=== PATIENT | male | born 1985 | race Caucasian/White ===

== ENCOUNTER 2017-08-30 07:44 | Inpatient (IN) ==
[2017-08-30] MEDS ORDERED: Isovue-370 500 ML INFUS..BTL IV ONE (07:54)
[2017-08-30] MEDS ORDERED: Lactulose Oral Soln 20 GM/30 ML UDC PO ONE (07:54)
[2017-08-30] MEDS ORDERED: Naloxone 0.4 MG/ML INJ IVP ONE (07:54)
[2017-08-30] MEDS ORDERED: 0.9 % Sodium Chloride 1,000 ML IVC ONE (07:54)
[2017-08-30] MEDS ORDERED: 0.9 % Sodium Chloride 1,000 ML ONE (07:55)
[2017-08-30] MEDS ORDERED: Dexamethasone 4 MG/ML VIAL IVP ONE (08:08)
[2017-08-30] MEDS ORDERED: Hydrocortisone Sodium Succ 100 MG/2 ML VIAL IVP ONE (08:09)
--- NOTE | 2017-08-30 08:20 | Emergency Department Note ---
Disposition Clinical Impression: Esophageal varices with bleeding Qualifiers: Esophageal varices type: unspecified type Qualified Code(s): I85.01 - Esophageal varices with bleeding Disposition: Admitted As Inpatient Condition: Critical Time of Disposition: 10:18 General Adult HPI - General Chief complaint: ED Weakness Stated complaint: Vomiting Blood Time Seen by Provider: 08/30/17 07:54 Source: EMS Limitations: altered mental status Nursing Notes Reviewed: Yes Vital Signs Reviewed: Yes - History of Present Illness HPI Narrative: 32 year old male found incoherent and down at his house by family memebers is brught to us via EMS for AMS and hypotension. Nereida most rencetly has been treated for a lead infection and appears yellow on exam. Scleral icterus present with grimacing on abdominal pain localizing to the pain and to the IV. He recieved 2 narcan and another dose here and appear to be more alert, and is opening his eyes to voice, although incomprehensible words (moans and groans). Due to inabiltity to obtain further information we will contineu with altered mental status workup. Pain Scale: 0 - Related Data Home Medications Medication Instructions Recorded Confirmed Unable To Obtain [Unable to Obtain] 08/30/17 08/30/17 Allergies Allergy/AdvReac Type Severity Reaction Status Date / Time No Known Allergies Allergy Verified 08/30/17 07:46 Review of Systems: As Per HPI Limitations: ROS unobtainable due to patients medical condition Past Medical History - Past Medical History Medical history: Reports: no medical history Psychiatric history: Reports: no psych history - Social History Smoking Status: Unknown if ever smoked Alcohol use: Reports: unknown Physical Exam - General Limitations: altered mental status General appearance: in no apparent distress, lethargic - Head Head exam: atraumatic, normocephalic, normal inspection - Eye Eye exam: Present: PERRL, EOMI, scleral icterus, mydriasis - Expanded Eye Exam Eyelids: bilateral: normal inspection Pupils: Bilateral: regular, round, reactive - ENT ENT exam: normal exam, normal oropharynx, mucous membranes moist - Expanded ENT Exam External ear exam: Present: normal external inspection Mouth exam: Present: normal external inspection Teeth exam: Present: normal inspection Throat exam: Present: normal inspection - Neck Neck exam: Present: normal inspection, full ROM, trachea midline - Chest Chest inspection: Present: normal inspection, symmetric chest wall rise - Respiratory Respiratory exam: Present: normal lung sounds bilaterally - Cardiovascular Cardiovascular exam: Present: normal rhythm, tachycardia, normal heart sounds. Absent: systolic murmur, diastolic murmur - Abdominal Exam Abdominal exam: Present: soft, tenderness, normal bowel sounds. Absent: Non- Tender, distention, guarding, rebound, rigidity, organomegaly, Porter's sign, Rovsing's sign, tenderness at McBurney's Point Abdominal tenderness: Present: diffuse, moderate - Extremities Exam Extremities exam: Present: normal inspection, full ROM. Absent: tenderness, pedal edema - Expanded Upper Extremity Exam Shoulder exam: Present: normal inspection, full ROM Arm exam: Present: normal inspection, full ROM Elbow exam: Present: normal inspection, full ROM Forearm/Wrist exam: Present: normal inspection, full ROM Hand exam: Present: normal inspection, full ROM Vascular exam: Normal: capillary refill, radial pulse - Expanded Lower Extremity Exam Hip/Pelvis exam: Present: normal inspection, full ROM Upper leg exam: Present: normal inspection, full ROM Knee exam: Present: normal inspection, full ROM Lower leg exam: Present: normal inspection, full ROM Ankle exam: Present: normal inspection, full ROM Foot/toe exam: Present: normal inspection, full ROM Neurovascular/Tendon exam: Absent: motor deficit, sensory deficit, tendon deficit - Back Exam Back exam: Present: normal inspection, full ROM. Absent: tenderness - Neurological Exam Neurological exam: Present: alert, oriented X3 - Expanded Neurological Exam Patient oriented to: Present: person, place, time Coma Scale Eye Opening: To Voice Coma Scale Motor Response: Localizes to Pain Coma Scale Verbal Response: Incomprehensible Coma Scale Total: 10 - Skin Skin exam: Present: warm, dry, intact, normal color, other (eccyhmosis to the left upper extremitiy) Course Course Narrative: secondary to his AMS we will contineu workup aggressively wiht multple labs and CTS to assess. My clinical suspicion is that this may be secondary to a hepatobiliary process. His hypotension will be corrected with IVF, banana bag, and blood if needed. There was report that he was vomitting blood at the scene althogh it was described as dark red and scant almost like coffee ground. - Reevaluation(s) Reevaluation #1: patient has become incresingly more bradycardiac and had a thready pulse then proceeded to PEA. WE started compressions and have intubated patient and started Trauma blood. WE will contineu with workup and patient now has a pulse with rate of 120 and BP of 112/89. It appeared that he may have had a seizure during this episode with his mouth clenched and foaming at the mouth. We will continue with resusutiation efforts, and I have given him ativan for contnued therapy Time: 08:42 - Consultations Consultation #1: discussed case with Dr. Diaz at [facility] and he has been acceped to the ICU. I have stressed that this patient will need re-evaluation in the ED due to teneous unstable nature. They will see if he can be re-evlauted in the ED and call me back MICU has been called and is in transit. I have updated family about his poor progonosis and that there is a liklihood that he may not survive the trasport due to his teneuous nature. I have discussed with the endoscopy [facility] doctor Dr. Gillespie and she states taht she cannot do variceal bleed ligations and that I will need to speak with GI. As it appears we do not have GI coverage for the ED, but I will try an overridde call for Dr. Young/Sim Time: 09:45 Consultation #2: discussed case with Dr. Young and he has accepted patient to the OR. Nereida still has a poor prognosis. Lactic acid of 10, Time: 10:18 Vital Signs Temperature 93.6 F L 08/30/17 07:46 Pulse Rate 103 08/30/17 07:46 Respiratory Rate 16 08/30/17 07:46 Blood Pressure 67/42 08/30/17 07:46 O2 Sat by Pulse Oximetry 99 08/30/17 07:46 Temperature 93.6 F L 08/30/17 07:46 Pulse Rate 114 08/30/17 10:31 Respiratory Rate 12 08/30/17 10:31 Blood Pressure 100/71 08/30/17 10:31 O2 Sat by Pulse Oximetry 100 08/30/17 10:31 Oxygen Delivery Oxygen Delivery Ventilator Medical Decision Making - Lab Data Result diagrams: 08/30/17 07:54 08/30/17 07:54 Lab Results 08/30/17 08/30/17 08/30/17 Range/Units 07:52 07:54 07:54 WBC 14.0 H (4.3-11.1) K/mcL RBC 1.46 L (4.19-5.50) M/mcL Hgb 4.6 L* (12.9-16.9) g/dL Hct 15.4 L (37.5-50.1) % MCV 105.5 H (83.0-100.0) fL MCH 31.5 (28.0-33.3) pg MCHC 29.9 L (31.6-35.5) g/dL RDW 17.5 H (11.5-14.5) % Plt Count 30 L* (140-400) K/mcL MPV 13.3 H (9.4-12.4) fL Seg Neutrophils % 68.0 % Band Neutrophils % 6.0 H (0-4) % Lymphocytes % 16.0 % Monocytes % 8.0 % Eosinophils % 2.0 % Neutrophils # 10.4 H (1.6-8.9) K/mcL Lymphocytes # 2.2 (0.6-4.6) K/mcL Monocytes # 1.1 (0.0-1.3) K/mcL Eosinophils # 0.3 (0.0-0.6) K/mcL Nucleated RBCs/100 WBC 1.6 H (0) /100 WBC Platelet Estimate Marked Decrease L (Normal) Polychromasia 1+ A (Not Present) Hypochromasia Present A (Not Present) Poikilocytosis 1+ A (Not Present) Anisocytosis 1+ A (Not Present) PT 54.4 H* (9.4-12.1) Seconds INR 4.9 H* ABG pH (7.32-7.45) pH Units ABG pCO2 (35-45) mmHg ABG pO2 (85-104) mmHg ABG HCO3 (21-27) mEq/L ABG Total CO2 (20-26) mEq/L ABG O2 Saturation (95-98) % ABG Base Excess (-2 to 3) mEq/L Carboxyhemoglobin (0-5) % Respiration Rate O2 Delivery Device Blood Gas Modality Inspired O2 (1-15=lpm [id number]=%) Tidal Volume cc PEEP cm H2O Sodium (136-145) mEq/L Potassium (3.5-5.1) mEq/L Chloride (98-107) mEq/L Carbon Dioxide (23-29) mEq/L BUN (6-20) mg/dL Creatinine (0.70-1.30) mg/dL Est GFR ( Amer) (> 60) Est GFR (Non-Af Amer) (> 60) BUN/Creatinine Ratio (6-26) Glucose (70-105) mg/dL POC Glucose 141 H (70-99) mg/dL Calculated Osmolality (280-300) Lactic Acid (0.5-2.2) mmol/L Calcium (8.6-10.3) mg/dL Total Bilirubin (0.3-1.0) mg/dL Direct Bilirubin (0.0-0.2) mg/dL Indirect Bilirubin (0.0-1.2) mg/dL AST (13-39) Units/L ALT (7-52) Units/L Alkaline Phosphatase (34-104) Units/L Ammonia (16-53) mcmol/L Creatine Kinase (30-223) Units/L Troponin I (< 0.04) ng/mL Serum Total Protein (6.4-8.9) g/dL Albumin (3.5-5.7) g/dL Globulin Albumin/Globulin Ratio Lipase (11-82) Units/L TSH (0.340-5.600) mcIU/mL Salicylates (15.0-30.0) mg/dL Acetaminophen (10-20) mcg/mL Ethyl Alcohol (Less than 10) mg/dL Blood Type Antibody Screen Crossmatch 08/30/17 08/30/17 08/30/17 Range/Units 07:54 09:08 09:16 WBC (4.3-11.1) K/mcL RBC (4.19-5.50) M/mcL Hgb (12.9-16.9) g/dL Hct (37.5-50.1) % MCV (83.0-100.0) fL MCH (28.0-33.3) pg MCHC (31.6-35.5) g/dL RDW (11.5-14.5) % Plt Count (140-400) K/mcL MPV (9.4-12.4) fL Seg Neutrophils % % Band Neutrophils % (0-4) % Lymphocytes % % Monocytes % % Eosinophils % % Neutrophils # (1.6-8.9) K/mcL Lymphocytes # (0.6-4.6) K/mcL Monocytes # (0.0-1.3) K/mcL Eosinophils # (0.0-0.6) K/mcL Nucleated RBCs/100 WBC (0) /100 WBC Platelet Estimate (Normal) Polychromasia (Not Present) Hypochromasia (Not Present) Poikilocytosis (Not Present) Anisocytosis (Not Present) PT (9.4-12.1) Seconds INR ABG pH 6.82 L* (7.32-7.45) pH Units ABG pCO2 38 (35-45) mmHg ABG pO2 106 H (85-104) mmHg ABG HCO3 6 L (21-27) mEq/L ABG Total CO2 7 L (20-26) mEq/L ABG O2 Saturation 90 L (95-98) % ABG Base Excess -25 L (-2 to 3) mEq/L Carboxyhemoglobin (0-5) % Respiration Rate 12 O2 Delivery Device Adult Vent Blood Gas Modality ASSIST CONTROL Inspired O2 50.0 (1-15=lpm [id number]=%) Tidal Volume 500 cc PEEP 5 cm H2O Sodium 143 (136-145) mEq/L Potassium 4.9 (3.5-5.1) mEq/L Chloride 116 H (98-107) mEq/L Carbon Dioxide 8 L* (23-29) mEq/L BUN 13 (6-20) mg/dL Creatinine 1.49 H (0.70-1.30) mg/dL Est GFR ( Amer) > 60 (> 60) Est GFR (Non-Af Amer) 54 L (> 60) BUN/Creatinine Ratio 9 (6-26) Glucose 126 H (70-105) mg/dL POC Glucose (70-99) mg/dL Calculated Osmolality 298 (280-300) Lactic Acid (0.5-2.2) mmol/L Calcium 7.6 L (8.6-10.3) mg/dL Total Bilirubin 2.5 H (0.3-1.0) mg/dL Direct Bilirubin 1.5 H (0.0-0.2) mg/dL Indirect Bilirubin 1.0 (0.0-1.2) mg/dL AST 108 H (13-39) Units/L ALT 28 (7-52) Units/L Alkaline Phosphatase 74 (34-104) Units/L Ammonia 259 H (16-53) mcmol/L Creatine Kinase 320 H (30-223) Units/L Troponin I 0.39 H* (< 0.04) ng/mL Serum Total Protein < 3.0 L (6.4-8.9) g/dL Albumin < 1.5 L (3.5-5.7) g/dL Globulin TNP Albumin/Globulin Ratio TNP Lipase 91 H (11-82) Units/L TSH 1.890 (0.340-5.600) mcIU/mL Salicylates < 2.5 L (15.0-30.0) mg/dL Acetaminophen < 10 L (10-20) mcg/mL Ethyl Alcohol < 10 (Less than 10) mg/dL Blood Type Antibody Screen Crossmatch 08/30/17 08/30/17 08/30/17 Range/Units 09:25 09:25 09:25 WBC (4.3-11.1) K/mcL RBC (4.19-5.50) M/mcL Hgb (12.9-16.9) g/dL Hct (37.5-50.1) % MCV (83.0-100.0) fL MCH (28.0-33.3) pg MCHC (31.6-35.5) g/dL RDW (11.5-14.5) % Plt Count (140-400) K/mcL MPV (9.4-12.4) fL Seg Neutrophils % % Band Neutrophils % (0-4) % Lymphocytes % % Monocytes % % Eosinophils % % Neutrophils # (1.6-8.9) K/mcL Lymphocytes # (0.6-4.6) K/mcL Monocytes # (0.0-1.3) K/mcL Eosinophils # (0.0-0.6) K/mcL Nucleated RBCs/100 WBC (0) /100 WBC Platelet Estimate (Normal) Polychromasia (Not Present) Hypochromasia (Not Present) Poikilocytosis (Not Present) Anisocytosis (Not Present) PT (9.4-12.1) Seconds INR ABG pH (7.32-7.45) pH Units ABG pCO2 (35-45) mmHg ABG pO2 (85-104) mmHg ABG HCO3 (21-27) mEq/L ABG Total CO2 (20-26) mEq/L ABG O2 Saturation (95-98) % ABG Base Excess (-2 to 3) mEq/L Carboxyhemoglobin 2.2 (0-5) % Respiration Rate O2 Delivery Device Blood Gas Modality Inspired O2 (1-15=lpm [id number]=%) Tidal Volume cc PEEP cm H2O Sodium (136-145) mEq/L Potassium (3.5-5.1) mEq/L Chloride (98-107) mEq/L Carbon Dioxide (23-29) mEq/L BUN (6-20) mg/dL Creatinine (0.70-1.30) mg/dL Est GFR ( Amer) (> 60) Est GFR (Non-Af Amer) (> 60) BUN/Creatinine Ratio (6-26) Glucose (70-105) mg/dL POC Glucose (70-99) mg/dL Calculated Osmolality (280-300) Lactic Acid > 10.0 H* (0.5-2.2) mmol/L Calcium (8.6-10.3) mg/dL Total Bilirubin (0.3-1.0) mg/dL Direct Bilirubin (0.0-0.2) mg/dL Indirect Bilirubin (0.0-1.2) mg/dL AST (13-39) Units/L ALT (7-52) Units/L Alkaline Phosphatase (34-104) Units/L Ammonia (16-53) mcmol/L Creatine Kinase (30-223) Units/L Troponin I (< 0.04) ng/mL Serum Total Protein (6.4-8.9) g/dL Albumin (3.5-5.7) g/dL Globulin Albumin/Globulin Ratio Lipase (11-82) Units/L TSH (0.340-5.600) mcIU/mL Salicylates (15.0-30.0) mg/dL Acetaminophen (10-20) mcg/mL Ethyl Alcohol (Less than 10) mg/dL Blood Type O NEGATIVE Antibody Screen NEGATIVE Crossmatch See Detail
[2017-08-30] MEDS ORDERED: Norepinephrine 4 MG in D5% in Water 250 ML IVC SCH (09:00)
[2017-08-30 09:20] LABS: ABG Base Excess -25 mEq/L (-2 to 3); ABG HCO3 6 mEq/L (21-27); ABG Oxygen Saturation 90 % (95-98); ABG PCO2 38 mmHg (35-45); ABG PH 6.82 pH Units (7.32-7.45); ABG PO2 106 mmHg (85-104); ABG TCO2 7 mEq/L (20-26); Blood Gas Modality ASSIST CONTROL; Blood Gas PEEP 5 cm H2O; Blood Gas Respiration Rate 12; Blood Gas VT 500 cc
[2017-08-30] MEDS ORDERED: Vasopressin 40 UNIT in D5% in Water 100 ML IV SCH (09:30)
[2017-08-30] MEDS ORDERED: 0.9 % Sodium Chloride 2,000 ML ONE (09:32)
[2017-08-30] MEDS: 0.9 % Sodium Chloride 1,000 ML IVC SCH ×5 (09:35→15:28)
[2017-08-30] MEDS ORDERED: 0.9 % Sodium Chloride 500 ML ONE (09:36)
[2017-08-30 09:48] LABS: Hematocrit 15.4 % (37.5-50.1); Mean Corpuscular HGB Conc 29.9 g/dL (31.6-35.5); Mean Corpuscular Hemoglobin 31.5 pg (28.0-33.3); Mean Corpuscular Volume 105.5 fL (83.0-100.0); Mean Platelet Volume 13.3 fL (9.4-12.4); Nucleated Red Blood Cells 1.6 /100 WBC (0); Red Blood Count 1.46 M/mcL (4.19-5.50); Red Cell Distribution Width 17.5 % (11.5-14.5)
[2017-08-30 09:56] LABS: Platelet Count 30 K/mcL (140-400)
[2017-08-30 09:57] LABS: Hemoglobin 4.6 g/dL (12.9-16.9)
--- NOTE | 2017-08-30 10:04 | Anesthesia Evaluation PreOp ---
Date of Encounter: 08/30/17 Time of Encounter: 10:03 - Past History Planned Operation: EGD Cardiac History: Denies any Significant Hx Pulmonary History: Smoker [employer] History: Other (Altered Mental Status prior to intubation in ER) Other Medical History: Denies Any Significant HX Alcohol Use: heavy, recent Drug use: unknown, other (Family stted he has used illict drugs in past,) Medications and Allergies Unable To Obtain [Unable to Obtain] 08/30/17 [History] 3 Allergy/AdvReac Type Severity Reaction Status Date / Time No Known Allergies Allergy Verified 08/30/17 07:46 - Meds/Allergy Pre-op Review Medications Reviewed: Yes Allergies Reviewed: Yes Beta Blockers on Current Med List: No Anesthesia Results - Labs 08/30/17 07:54 08/30/17 07:54 - Imaging EKG: report reviewed Anesthesia Exam O2 Sat Height 1.78 m Weight 54.431 kg O2 Sat by Pulse Oximetry [[id number] ] O2 Sat by Pulse Oximetry 100 O2 Sat by Pulse Oximetry 100 O2 Sat by Pulse Oximetry 99 O2 Sat by Pulse Oximetry 99 O2 Sat by Pulse Oximetry 100 O2 Sat by Pulse Oximetry 97 O2 Sat by Pulse Oximetry 99 Vital Signs Temp Pulse Resp BP Pulse Ox 93.6 F L 103 16 67/42 99 08/30/17 07:46 08/30/17 07:46 08/30/17 07:46 08/30/17 07:46 08/30/17 07:46 NPO (# of Hours): > 8 hrs Pain Scale: 0 Pain Scale Used: Numeric (1 - 10) - HEENT Pupil (Motor): Pupils equal, Other Mallampati: Intubated - [employer] LOC: Unable to assess - Cardiac Rhythm: Regular (Tachycardic) Murmur: None JVD: No Carotid Bruit: No - Pulmonary Breath Sounds: bilateral Clear Respiratory Effort: Symmetrical Anesthesia Assess/Plan ASA Score: 5, E Modified [place] Scale for Level of Consciousness: Asleep with no response Anesthetic Plan: General Autologous Blood: Yes Monitoring Plan: Standard Monitors Recovery Plan: ICU
[2017-08-30 10:08] LABS: Acetaminophen < 10 mcg/mL (10-20)
[2017-08-30 10:13] LABS: Alanine Aminotransferase 28 Units/L (7-52); Albumin < 1.5 g/dL (3.5-5.7); Alkaline Phosphatase 74 Units/L (34-104); Aspartate Amino Transferase 108 Units/L (13-39); BUN/Creatinine Ratio 9 (6-26); Bilirubin,Direct 1.5 mg/dL (0.0-0.2); Bilirubin,Total 2.5 mg/dL (0.3-1.0); Blood Urea Nitrogen 13 mg/dL (6-20); Calcium 7.6 mg/dL (8.6-10.3); Carbon Dioxide 8 mEq/L (23-29); Chloride 116 mEq/L (98-107); Creatine Kinase 320 Units/L (30-223); Ethanol < 10 mg/dL (Less than 10); Glucose 126 mg/dL (70-105); Lipase 91 Units/L (11-82); Osmolality,Calculated 298 (280-300); Potassium 4.9 mEq/L (3.5-5.1); Salicylate < 2.5 mg/dL (15.0-30.0); Sodium 143 mEq/L (136-145); Total Protein < 3.0 g/dL (6.4-8.9); Troponin I 0.39 ng/mL (< 0.04); eGFR For African Americans > 60 (> 60); eGFR For Non-African Americans 54 (> 60)
[2017-08-30 10:15] LABS: Eosinophils # 0.3 K/mcL (0.0-0.6); Lymphocytes # 2.2 K/mcL (0.6-4.6); Monocytes # 1.1 K/mcL (0.0-1.3); Neutrophils # 10.4 K/mcL (1.6-8.9)
[2017-08-30 10:16] LABS: Anisocytosis 1+ (Not Present); Hypochromasia Present (Not Present); Platelet Estimate Marked Decrease (Normal); Poikilocytosis 1+ (Not Present)
[2017-08-30 10:18] LABS: Polychromasia 1+ (Not Present)
[2017-08-30] MEDS ORDERED: *HR* Vasopressin 20 UNIT/ML VIAL ONE (10:18)
[2017-08-30] MEDS ORDERED: EPHEDrine 50 MG/ML VIAL ONE (10:23)
--- NOTE | 2017-08-30 11:08 | Gastroenterology Consult Note ---
<Simin Mondragon M - Last Filed: 08/30/17 11:01> Date of Encounter: 08/30/17 Time of Encounter: 10:05 - Assessment and plan (1) Esophageal varices with bleeding Status: Acute Assessment and plan: Pt presents with massive upper GI bleed, likely from variceal bleeding as he has a history of alcoholism. He is unstable and hypotensive, requiring mechanical ventilation and vasopressors. He has received total of 4 units trauma blood at this time. Will proceed with emergent EGD for bleeding control. Pts family notified that the patient is in critical condition and his prognosis is likely poor, they verbalize understanding. Qualifiers: Esophageal varices type: unspecified type Qualified Code(s): I85.01 - Esophageal varices with bleeding - Time Spent With Patient Total time spent is greater than 50% in coordination of care (as documented) at patient's floor/unit and/or counseling patient: GI History of Present Illness - Data of Consult Patient: new to practice Consult date: 08/30/17 Requesting Physician: April Young MD - Consult Narrative Reason for consult: hematemesis History of present illness: Mr. Mohan is a 32 year old male who presented to the ED after being found unresponsive and hypotensive at home by his family. He had hematemesis bright red blood. Pt is currently intubated, BP 69/38 and HR 107, he has already had 2 units prbcs at the time of assessment. Bright red blood is noted in suction container. Pts family state he has a history of daily alcohol consumption and binge drinking. They state he has not been drinking much lately as he has been sick the past month. He has been complaining of GERD and abdominal pain at home , and has lost approximately 20 pounds in the past month. They deny any prior episodes of GI bleed but state he has recent nosebleeds and told them he had seen a Dr at [place] although there are no records of this. They deny any known history of cirrhosis or varices. He has no history of cardiac illness or blood thinners, no previous scopes, they deny any known NSAIDs but state he stays in his room most of the time. Past Med Surg Social Fam HX - Past Medical History Medical history: no medical history Psychiatric history: no psych history - Social History Smoking Status: Unknown if ever smoked Alcohol use: unknown Drug use: unknown, other (Family stted he has used illict drugs in past,) ROS unobtainable: due to endotracheal tube - Constitutional Vitals: Temp Pulse Resp BP Pulse Ox 93.6 F L 113 12 64/35 100 08/30/17 07:46 08/30/17 10:41 08/30/17 10:41 08/30/17 10:41 08/30/17 10:41 Exam: CONSTITUTIONAL:~orally intubated.~HEAD:~normocephalic.~EYES:~jaundice.~NECK:~no obvious swelling.~HEART:~regular rate and rhythm, tachycardic.~LUNGS:~bilateral good air entry.~ABDOMEN:~distended, bright red blood from OGT .~RECTAL EXAM:~ Deferred.~EXTREMITIES:~no clubbing, cyanosis or edema.~SKIN:~jaundice noted.~ NEUROLOGIC:~on vent.~~~~ Results - Labs CBC & Chem 7: 08/30/17 07:54 08/30/17 07:54 Labs: Last Result Calcium 7.6 mg/dL (8.6-10.3) L 08/30/17 07:54 Troponin I 0.39 ng/mL (< 0.04) H* 08/30/17 07:54 Salicylates < 2.5 mg/dL (15.0-30.0) L 08/30/17 07:54 Entire Visit Hgb 4.6 g/dL (12.9-16.9) L* 08/30/17 07:54 Hct 15.4 % (37.5-50.1) L 08/30/17 07:54 PT TNP 08/30/17 07:54 Total Bilirubin 2.5 mg/dL (0.3-1.0) H 08/30/17 07:54 AST 108 Units/L (13-39) H 08/30/17 07:54 ALT 28 Units/L (7-52) 08/30/17 07:54 Ammonia 259 mcmol/L (16-53) H 08/30/17 09:08 Lipase 91 Units/L (11-82) H 08/30/17 07:54 Acetaminophen < 10 mcg/mL (10-20) L 08/30/17 07:54 - ABG ABG results: ABG ABG pH 6.82 pH Units (7.32-7.45) L* 08/30/17 09:16 ABG pCO2 38 mmHg (35-45) 08/30/17 09:16 ABG pO2 106 mmHg (85-104) H 08/30/17 09:16 ABG O2 Saturation 90 % (95-98) L 08/30/17 09:16 PT/INR, D-dimer PT TNP 08/30/17 07:54 Consult Discharge Plan - Plan Referrals: NONE,PCP [Primary Care Provider] - Helder Person MD [Family Provider] - <April Young - Last Filed: 08/30/17 21:15> Date of Encounter: 08/30/17 - Time Spent With Patient Total time spent is greater than 50% in coordination of care (as documented) at patient's floor/unit and/or counseling patient: GI History of Present Illness - Data of Consult Requesting Physician: April Young MD - Consult Narrative History of present illness: Mr. Mohan is a 32 year old male - Constitutional Vitals: Temp Pulse Resp BP Pulse Ox 96.4 F L 103 12 46/26 97 08/30/17 15:00 08/30/17 16:14 08/30/17 16:00 08/30/17 16:00 08/30/17 16:00 Results - Labs CBC & Chem 7: 08/30/17 15:42 08/30/17 13:00 Labs: Last Result Calcium 7.9 mg/dL (8.6-10.3) L 08/30/17 13:00 Troponin I 0.39 ng/mL (< 0.04) H* 08/30/17 07:54 Salicylates < 2.5 mg/dL (15.0-30.0) L 08/30/17 07:54 Entire Visit Hgb 1.8 g/dL (12.9-16.9) L* D 08/30/17 15:42 Hct 6.4 % (37.5-50.1) L* 08/30/17 15:42 PT 26.2 Seconds (9.4-12.1) H 08/30/17 13:12 Total Bilirubin 1.1 mg/dL (0.3-1.0) H 08/30/17 11:23 AST 97 Units/L (13-39) H 08/30/17 11:23 ALT 24 Units/L (7-52) 08/30/17 11:23 Ammonia 259 mcmol/L (16-53) H 08/30/17 09:08 Lipase 91 Units/L (11-82) H 08/30/17 07:54 Acetaminophen < 10 mcg/mL (10-20) L 08/30/17 07:54 - ABG ABG results: ABG ABG pH 7.06 pH Units (7.32-7.45) L* D 08/30/17 13:24 ABG pCO2 36 mmHg (35-45) 08/30/17 13:24 ABG pO2 166 mmHg (85-104) H D 08/30/17 13:24 ABG O2 Saturation 99 % (95-98) H 08/30/17 13:24 PT/INR, D-dimer PT 26.2 Seconds (9.4-12.1) H 08/30/17 13:12 - Impressions Impressions K[facility] X-Ray 08/30/17 12:27 IMPRESSION: Orogastric tube tip in the distal body/ antrum of the stomach. D/ / Matteo Ramirez / Matteo Ramirez Interpreting Provider: Matteo Ramirez - Attending Attestation I have personally performed a face to face evaluation on this patient. I have reviewed and agree with the care plan. History and Exam by me shows: Pt seen in ER. Pt with massive GI bleed with severe coagulopathy, low platelets and shock on three pressors. Still BP in 60s. Talked to family, pt very unstable and critical with with very poor prognosis, intubated with PH < 6.9. Rec: Emergent EGD in OR octreotide infusion Blood products including FFP and platelets.
[2017-08-30] MEDS ORDERED: *HR* Atropine Sulfate 1 MG/10 ML SYRINGE IV ONE (11:16)
[2017-08-30] MEDS ORDERED: *HR* EPINEPHrine 1 MG/10 ML SYRINGE IVP ONE (11:16)
[2017-08-30] MEDS ORDERED: *HR* Norepinephrine 4 MG/4 ML VIAL IVC ONE (11:16)
[2017-08-30] MEDS ORDERED: *HR* Midazolam HCl 2 MG/2 ML VIAL ONE (11:19)
[2017-08-30 11:39] LABS: Basophils % 0.1 %; Eosinophils # 0.1 K/mcL (0.0-0.6); Hematocrit 18.6 % (37.5-50.1); Immature Granulocytes % 12.2 % (0-4); Lymphocytes # 1.1 K/mcL (0.6-4.6); Lymphocytes % 13.8 %; Mean Corpuscular HGB Conc 31.2 g/dL (31.6-35.5); Mean Corpuscular Hemoglobin 31.9 pg (28.0-33.3); Mean Corpuscular Volume 102.2 fL (83.0-100.0); Monocytes % 6.9 %; Neutrophils # 5.2 K/mcL (1.6-8.9); Nucleated Red Blood Cells 3.4 /100 WBC (0); Red Blood Count 1.82 M/mcL (4.19-5.50); Red Cell Distribution Width 13.4 % (11.5-14.5)
[2017-08-30 11:42] LABS: ABG Base Excess -24 mEq/L (-2 to 3); ABG Chloride 118 mEq/L (98-107); ABG Glucose 182 mg/dL (60-95); ABG HCO3 8 mEq/L (21-27); ABG Ionized Calcium 0.71 mmol/L (1.15-1.35); ABG Oxygen Saturation 100 % (95-98); ABG PCO2 51 mmHg (35-45); ABG PO2 321 mmHg (85-104); ABG TCO2 10 mEq/L (20-26)
[2017-08-30 11:42] LABS: Monocytes # 0.6 K/mcL (0.0-1.3); Platelet Count 45 K/mcL (140-400)
[2017-08-30 11:43] LABS: Hemoglobin 5.8 g/dL (12.9-16.9)
[2017-08-30 11:45] LABS: INR 2.8; Prothrombin Time 30.9 Seconds (9.4-12.1)
[2017-08-30] MEDS ORDERED: *HR* Midazolam HCl 5 MG/5 ML VIAL IVP ONE (11:55)
[2017-08-30 11:57] LABS: Alanine Aminotransferase 24 Units/L (7-52); Albumin < 1.5 g/dL (3.5-5.7); Alkaline Phosphatase 33 Units/L (34-104); Aspartate Amino Transferase 97 Units/L (13-39); BUN/Creatinine Ratio 9 (6-26); Bilirubin,Total 1.1 mg/dL (0.3-1.0); Blood Urea Nitrogen 12 mg/dL (6-20); Carbon Dioxide 9 mEq/L (23-29); Chloride 118 mEq/L (98-107); Glucose 184 mg/dL (70-105); Magnesium 1.8 mg/dL (1.6-2.6); Osmolality,Calculated 305 (280-300); Phosphorous 8.5 mg/dL (2.7-4.5); Potassium 5.1 mEq/L (3.5-5.1); Sodium 145 mEq/L (136-145); Total Protein < 3.0 g/dL (6.4-8.9); eGFR For African Americans > 60 (> 60); eGFR For Non-African Americans > 60 (> 60)
[2017-08-30 12:07] LABS: Activated Partial Thrombo Time > 360.0 Seconds (26.0-36.0)
[2017-08-30] MEDS ORDERED: Sodium Bicarbonate 50 MEQ/50 ML VIAL ONE (12:30)
[2017-08-30] MEDS ORDERED: *HR* FentaNYL (PF) 100 MCG/2 ML VIAL ONE (13:03)
[2017-08-30 13:12] LABS: Hematocrit 19.1 % (37.5-50.1); Lymphocytes # 0.9 K/mcL (0.6-4.6); Mean Corpuscular HGB Conc 31.4 g/dL (31.6-35.5); Mean Corpuscular Hemoglobin 29.9 pg (28.0-33.3); Mean Platelet Volume 10.3 fL (9.4-12.4); Monocytes # 0.2 K/mcL (0.0-1.3); Nucleated Red Blood Cells 1.3 /100 WBC (0); Red Blood Count 2.01 M/mcL (4.19-5.50); Red Cell Distribution Width 13.7 % (11.5-14.5)
[2017-08-30 13:16] LABS: Platelet Count 22 K/mcL (140-400)
--- NOTE | 2017-08-30 13:20 | Pulmonology Consult Note ---
<Aimee Hernandezz - Last Filed: 08/30/17 18:24> Date of Encounter: 08/30/17 Time of Encounter: 13:16 Assessment and Plan (1) Esophageal varices with bleeding Status: Acute Patient presented to [facility] with massive upper GI bleed - Likely secondary to variceal bleeding - Patient has a known history of alcoholism - Patient is unstable on arrival; tachycardic and hypotensive - Has received a total of 4 units of, blood at this time - GI has been consulted; patient will undergo emergent EGD for bleeding control - In the ER, patient got a one-time dose of Decadron, hydrocortisone, Iopamidol , octreotide Plan: - Normal saline, Heparin lock - Versed - Thiamine IV daily - Norepinephrine - Vasopressin Qualifiers: Esophageal varices type: unspecified type Qualified Code(s): I85.01 - Esophageal varices with bleeding (2) Acute respiratory failure with hypoxia Status: Acute Patient is currently intubated and sedated - AB.82/38/106/6/7/90 - 6 units of packed red blood cells, 2 units of platelets have been ordered - UDS and UA - Blood culture ordered - Venous lead levels have been ordered as well History of Present Illness Consult date: 08/30/17 Chief complaint: Hematemesis History of present illness: Mr. Mohan is a 32-year-old male who presented to the ED after being found unresponsive and hypotensive at home by her family. Patient had hematemesis. He is currently intubated. Upon arrival to the emergency department, patient had an elevated pulse at 103 bpm and was hypotensive at 67/42. All other vital signs were within normal limits. His family stated that he he has a history of daily alcohol consumption and binge drinking. They report that he has not been drinking much lately; has been sick the past month. Had been complaining of GERD and abdominal pain at home. He has had an unintentional weight loss of 20 pounds within the last month. They deny having any prior episodes of GI bleeds. He does however have a history of nosebleeds. No known history of cirrhosis or varices. No known history of cardiac disease. Not currently on anticoagulation. No previous scopes. No known use of NSAIDs. Laboratory analysis demonstrated an elevated white count of 14.0, a hemoglobin of 4.6, an elevated creatinine at 1.49, and a lactic acid greater than 10. Arterial blood gas demonstrated a pH of 6.82, PCO2 38, PO2 of 106, bicarbonate 6 , total CO2 7, O2 saturation 90. Past Med Surg Social Fam HX - Past Medical History Medical history: no medical history Psychiatric history: no psych history - Social History Smoking Status: Unknown if ever smoked Alcohol use: unknown Drug use: unknown, other (Family stted he has used illict drugs in past,) Medications and Allergies Unable To Obtain [Unable to Obtain] 08/30/17 [History] 3 Allergy/AdvReac Type Severity Reaction Status Date / Time No Known Allergies Allergy Verified 08/30/17 07:46 All Systems: The remainder of the systems were reviewed and are negative Physical Examination Vital Signs: Vital Signs, Last 4 Hours Pulse Resp BP Pulse Ox 08/30/17 10:41 113 12 64/35 100 08/30/17 10:31 114 12 100/71 100 Results - Laboratory Findings CBC and BMP: 08/30/17 15:42 08/30/17 13:00 ABG ABG pH 6.80 pH Units (7.32-7.45) L* 08/30/17 11:35 ABG pCO2 51 mmHg (35-45) H 08/30/17 11:35 ABG pO2 321 mmHg (85-104) H D 08/30/17 11:35 ABG O2 Saturation 100 % (95-98) H 08/30/17 11:35 PT/INR, D-dimer PT 30.9 Seconds (9.4-12.1) H 08/30/17 10:50 Abnormal lab findings: Abnormal lab results RBC 1.82 M/mcL (4.19-5.50) L 08/30/17 10:50 Hgb 5.8 g/dL (12.9-16.9) L* 08/30/17 10:50 Hct 18.6 % (37.5-50.1) L 08/30/17 10:50 MCV 102.2 fL (83.0-100.0) H 08/30/17 10:50 MCHC 31.2 g/dL (31.6-35.5) L 08/30/17 10:50 Plt Count 45 K/mcL (140-400) L 08/30/17 10:50 Immature Gran % 12.2 % (0-4) H 08/30/17 10:50 Band Neutrophils % 6.0 % (0-4) H 08/30/17 07:54 Nucleated RBCs/100 WBC 3.4 /100 WBC (0) H 08/30/17 10:50 Platelet Estimate Marked Decrease (Normal) L 08/30/17 07:54 Polychromasia 1+ (Not Present) A 08/30/17 07:54 Hypochromasia Present (Not Present) A 08/30/17 07:54 Poikilocytosis 1+ (Not Present) A 08/30/17 07:54 Anisocytosis 1+ (Not Present) A 08/30/17 07:54 PT 30.9 Seconds (9.4-12.1) H 08/30/17 10:50 APTT > 360.0 Seconds (26.0-36.0) H* 08/30/17 10:50 Heparin Anti-Xa, Unfract 0.00 IU/mL (0.30-0.70) L 08/30/17 10:50 ABG pH 6.80 pH Units (7.32-7.45) L* 08/30/17 11:35 ABG pCO2 51 mmHg (35-45) H 08/30/17 11:35 ABG pO2 321 mmHg (85-104) H D 08/30/17 11:35 ABG HCO3 8 mEq/L (21-27) L 08/30/17 11:35 ABG Total CO2 10 mEq/L (20-26) L 08/30/17 11:35 ABG O2 Saturation 100 % (95-98) H 08/30/17 11:35 ABG Base Excess -24 mEq/L (-2 to 3) L 08/30/17 11:35 ABG Chloride 118 mEq/L (98-107) H 08/30/17 11:35 Glucose 182 mg/dL (60-95) H 08/30/17 11:35 Lactate 15.0 mmol/L (0.7-2.1) H* 08/30/17 11:35 Chloride 118 mEq/L (98-107) H 08/30/17 11:23 Carbon Dioxide 9 mEq/L (23-29) L* 08/30/17 11:23 Creatinine 1.31 mg/dL (0.70-1.30) H 08/30/17 11:23 Glucose 184 mg/dL (70-105) H 08/30/17 11:23 POC Glucose 141 mg/dL (70-99) H 08/30/17 07:52 Calculated Osmolality 305 (280-300) H 08/30/17 11:23 Lactic Acid > 10.0 mmol/L (0.5-2.2) H* 08/30/17 09:25 Calcium 6.0 mg/dL (8.6-10.3) L* 08/30/17 11:23 Phosphorus 8.5 mg/dL (2.7-4.5) H 08/30/17 11:23 Total Bilirubin 1.1 mg/dL (0.3-1.0) H 08/30/17 11:23 Direct Bilirubin 1.5 mg/dL (0.0-0.2) H 08/30/17 07:54 AST 97 Units/L (13-39) H 08/30/17 11:23 Alkaline Phosphatase 33 Units/L (34-104) L 08/30/17 11:23 Ammonia 259 mcmol/L (16-53) H 08/30/17 09:08 Creatine Kinase 320 Units/L (30-223) H 08/30/17 07:54 Troponin I 0.39 ng/mL (< 0.04) H* 08/30/17 07:54 Serum Total Protein < 3.0 g/dL (6.4-8.9) L 08/30/17 11:23 Albumin < 1.5 g/dL (3.5-5.7) L 08/30/17 11:23 Lipase 91 Units/L (11-82) H 08/30/17 07:54 Arterial Blood Ionized Calcium 0.71 mmol/L (1.15-1.35) L 08/30/17 11:35 Salicylates < 2.5 mg/dL (15.0-30.0) L 08/30/17 07:54 Acetaminophen < 10 mcg/mL (10-20) L 08/30/17 07:54 - Clinical Findings Intake & Output: Intake & Output 08/29/17 08/30/17 08/30/17 23:59 07:59 15:59 Intake Total 460 / 4631.9 Balance 460 / 4131.9 Consult Discharge Plan - Plan Referrals: Helder Person MD [Family Provider] - NONE,PCP [Primary Care Provider] - <Valentino Lundberg M - Last Filed: 08/31/17 06:27> Date of Encounter: 08/31/17 All Systems: The remainder of the systems were reviewed and are negative Physical Examination Vital Signs: Vital Signs, Last 4 Hours Temp Pulse Resp BP Pulse Ox 08/30/17 16:14 103 08/30/17 16:00 103 12 46/26 97 08/30/17 15:50 12 44/24 95 08/30/17 15:00 96.4 F L 122 12 85/34 97 Ventilator Settings Ventilator Settings: Ventilator Settings, Last 8 Hours Ventilator Mode VC+ Ventilator Mode VC+ Ventilator Mode VC+ Ventilator Tidal Volume 500 Setting Ventilator Tidal Volume 500 Setting Ventilator Tidal Volume 500 Setting Ventilator Respiratory Rate 12 Setting Ventilator Respiratory Rate 12 Setting Ventilator Respiratory Rate 12 Setting Actual Respiratory Rate 12 Actual Respiratory Rate 12 Actual Respiratory Rate 12 Actual Respiratory Rate 12 Actual Respiratory Rate 12 Positive End Expiratory 5 Pressure Positive End Expiratory 5 Pressure Positive End Expiratory 5 Pressure Positive End Expiratory 5 Pressure Positive End Expiratory 5 Pressure Peak Inspiratory Airway 27 Pressure Peak Inspiratory Airway 26 Pressure Peak Inspiratory Airway 26 Pressure Peak Inspiratory Airway 27 Pressure Peak Inspiratory Airway 28 Pressure Results - Laboratory Findings CBC and BMP: 08/30/17 15:42 08/30/17 13:00 ABG ABG pH 7.06 pH Units (7.32-7.45) L* D 08/30/17 13:24 ABG pCO2 36 mmHg (35-45) 08/30/17 13:24 ABG pO2 166 mmHg (85-104) H D 08/30/17 13:24 ABG O2 Saturation 99 % (95-98) H 08/30/17 13:24 PT/INR, D-dimer PT 26.2 Seconds (9.4-12.1) H 08/30/17 13:12 Abnormal lab findings: Abnormal lab results WBC 3.9 K/mcL (4.3-11.1) L D 08/30/17 13:00 RBC 2.01 M/mcL (4.19-5.50) L 08/30/17 13:00 Hgb 1.8 g/dL (12.9-16.9) L* D 08/30/17 15:42 Hct 6.4 % (37.5-50.1) L* 08/30/17 15:42 MCHC 31.4 g/dL (31.6-35.5) L 08/30/17 13:00 Plt Count 22 K/mcL (140-400) L* D 08/30/17 13:00 Immature Gran % 12.2 % (0-4) H 08/30/17 10:50 Band Neutrophils % 14.0 % (0-4) H 08/30/17 13:00 Nucleated RBCs/100 WBC 1.3 /100 WBC (0) H 08/30/17 13:00 Platelet Estimate Marked Decrease (Normal) L 08/30/17 13:00 Polychromasia 1+ (Not Present) A 08/30/17 13:00 Hypochromasia Present (Not Present) A 08/30/17 07:54 Poikilocytosis 1+ (Not Present) A 08/30/17 07:54 Anisocytosis 1+ (Not Present) A 08/30/17 07:54 PT 26.2 Seconds (9.4-12.1) H 08/30/17 13:12 APTT > 360.0 Seconds (26.0-36.0) H* 08/30/17 10:50 Heparin Anti-Xa, Unfract 0.00 IU/mL (0.30-0.70) L 08/30/17 10:50 ABG pH 7.06 pH Units (7.32-7.45) L* D 08/30/17 13:24 ABG pO2 166 mmHg (85-104) H D 08/30/17 13:24 ABG HCO3 10 mEq/L (21-27) L 08/30/17 13:24 ABG Total CO2 11 mEq/L (20-26) L 08/30/17 13:24 ABG O2 Saturation 99 % (95-98) H 08/30/17 13:24 ABG Base Excess -18 mEq/L (-2 to 3) L 08/30/17 13:24 ABG Chloride 118 mEq/L (98-107) H 08/30/17 11:35 Glucose 182 mg/dL (60-95) H 08/30/17 11:35 Lactate 15.0 mmol/L (0.7-2.1) H* 08/30/17 11:35 Potassium 6.8 mEq/L (3.5-5.1) H* D 08/30/17 13:00 Chloride 117 mEq/L (98-107) H 08/30/17 13:00 Carbon Dioxide 11 mEq/L (23-29) L 08/30/17 13:00 Glucose 216 mg/dL (70-105) H 08/30/17 13:00 POC Glucose 141 mg/dL (70-99) H 08/30/17 07:52 Calculated Osmolality 306 (280-300) H 08/30/17 13:00 Lactic Acid > 10.0 mmol/L (0.5-2.2) H* 08/30/17 09:25 Calcium 7.9 mg/dL (8.6-10.3) L 08/30/17 13:00 Phosphorus 7.7 mg/dL (2.7-4.5) H 08/30/17 13:00 Magnesium 1.5 mg/dL (1.6-2.6) L 08/30/17 13:00 Total Bilirubin 1.1 mg/dL (0.3-1.0) H 08/30/17 11:23 Direct Bilirubin 1.5 mg/dL (0.0-0.2) H 08/30/17 07:54 AST 97 Units/L (13-39) H 08/30/17 11:23 Alkaline Phosphatase 33 Units/L (34-104) L 08/30/17 11:23 Ammonia 259 mcmol/L (16-53) H 08/30/17 09:08 Creatine Kinase 320 Units/L (30-223) H 08/30/17 07:54 Troponin I 0.39 ng/mL (< 0.04) H* 08/30/17 07:54 Serum Total Protein < 3.0 g/dL (6.4-8.9) L 08/30/17 11:23 Albumin < 1.5 g/dL (3.5-5.7) L 08/30/17 11:23 Lipase 91 Units/L (11-82) H 08/30/17 07:54 Arterial Blood Ionized Calcium 0.71 mmol/L (1.15-1.35) L 08/30/17 11:35 Salicylates < 2.5 mg/dL (15.0-30.0) L 08/30/17 07:54 Acetaminophen < 10 mcg/mL (10-20) L 08/30/17 07:54 - Clinical Findings Intake & Output: Intake & Output 08/30/17 08/30/17 08/30/17 07:59 15:59 23:59 Intake Total 2460 / 6631.9 Output Total 0 / 500 Balance 2460 / 6131.9 - Attending Attestation I examined this patient and my medical decision-making was reviewed with the Resident Physician. I agree with the documented findings, disposition and treatment plan as described except to the extent set forth below. Patient seen and examined. This is a history and physical examination for admission Labs, radiology, chart personally reviewed. Agree with resident's history and physical, assessment, plan with following comments: BOX FABRICATOR: Patient does not follows commands, Pulmonary: Acceptable oxygenation and ventilation Cardiovascular: Patient in hemorrhagic shock. The patient was given fluid as well as blood blood and blood products and he was on 3 pressors without help and unfortunately his condition deteriorated further until he . GI: Nutrition per dietary and GI prophylaxis per routine. Patient with significant bleeding and condition was deteriorating I had multiple discussion with the family and his CODE STATUS progressed with changed to DNR arrest and then to comfort care. Had discussion regarding giving patient factor VII for helping clotting since patient is was not responding to any intervention. I discussed with the caustics loader as well as anesthesiologist. Patient has received significant blood and blood products without help. Patient has multiorgan failure and was clinically in DIC condition without any help of blood and blood product and supportive care. Heme: Patient with coagulopathy which is multifactorial from what they believe shock liver and also history of cirrhosis and also DIC picture. Combination of all it has been a problem for clotting mechanism and patient continued to bleed. Renal; urine out put and renal funtion reviewed. Patient also have evidence of hyperkalemia and he was treated with insulin and dextrose with calcium. Endorcine: blood glucose is monitored Lines: all lines checked and no evidence of infections Skin: skin care to prevent pressure ulcers per nursing routine care I had multiple discussions with the family in the presence of the nurse and eventually patient . Patient with multiorgan failures and very poor prognosis. I spent 80 min of Critical Care time with this patient. It involved decision making of high complexity to assess, manipulate, and support vital organ system failure and/or to prevent further life threatening deterioration of the patient' s condition. The time involved in the performance of separately reportable procedures was not counted toward critical care time.
[2017-08-30] MEDS ORDERED: DESMOPRESSIN IVPB ONE (13:26)
[2017-08-30] MEDS ORDERED: SODIUM CHLORIDE 0.9% IVPB ONE (13:26)
[2017-08-30 13:28] LABS: INR 2.4; Prothrombin Time 26.2 Seconds (9.4-12.1)
[2017-08-30 13:30] LABS: ABG Base Excess -18 mEq/L (-2 to 3); ABG HCO3 10 mEq/L (21-27); ABG Oxygen Saturation 99 % (95-98); ABG PCO2 36 mmHg (35-45); ABG PH 7.06 pH Units (7.32-7.45); ABG PO2 166 mmHg (85-104); ABG TCO2 11 mEq/L (20-26)
[2017-08-30] MEDS ORDERED: *HR* Rocuronium Bromide 50 MG/5 ML VIAL ONE (13:34)
[2017-08-30 13:47] LABS: Blood Urea Nitrogen 11 mg/dL (6-20); Carbon Dioxide 11 mEq/L (23-29); Chloride 117 mEq/L (98-107); Potassium 6.8 mEq/L (3.5-5.1); Sodium 145 mEq/L (136-145)
[2017-08-30 13:48] LABS: BUN/Creatinine Ratio 9 (6-26); Calcium 7.9 mg/dL (8.6-10.3); Glucose 216 mg/dL (70-105); Magnesium 1.5 mg/dL (1.6-2.6); Osmolality,Calculated 306 (280-300); Phosphorous 7.7 mg/dL (2.7-4.5); eGFR For African Americans > 60 (> 60); eGFR For Non-African Americans > 60 (> 60)
[2017-08-30 13:52] LABS: Neutrophils # 2.9 K/mcL (1.6-8.9); Platelet Estimate Marked Decrease (Normal)
[2017-08-30 13:53] LABS: Polychromasia 1+ (Not Present)
[2017-08-30] MEDS ORDERED: *HR* Dextrose 50 % in Water (Syg) 50 ML SYRINGE IVP ONE (14:07)
[2017-08-30] MEDS ORDERED: Insulin Human Regular 10 UNIT in 0.9 % Sodium Chloride 10 ML IV ONE (14:07)
[2017-08-30] MEDS ORDERED: Pantoprazole 40 MG in 0.9 % Sodium Chloride Mini Bag 100 ML IVC SCH (14:15)
[2017-08-30] MEDS ORDERED: Octreotide 400 MCG in 0.9 % Sodium Chloride 100 ML IVC SCH (14:15)
--- NOTE | 2017-08-30 14:24 | Emergency Department Note ---
Disposition Clinical Impression: Esophageal varices with bleeding Qualifiers: Esophageal varices type: unspecified type Qualified Code(s): I85.01 - Esophageal varices with bleeding Disposition: Admitted As Inpatient Condition: Critical General Adult HPI - General Chief complaint: ED Weakness Stated complaint: Vomiting Blood Time Seen by Provider: 08/30/17 07:54 Source: EMS Limitations: altered mental status - History of Present Illness Pain Scale: 0 - Related Data Home Medications Medication Instructions Recorded Confirmed Unable To Obtain [Unable to Obtain] 08/30/17 08/30/17 Allergies Allergy/AdvReac Type Severity Reaction Status Date / Time No Known Allergies Allergy Verified 08/30/17 07:46 Past Medical History - Past Medical History Medical history: Reports: no medical history Psychiatric history: Reports: no psych history - Social History Smoking Status: Unknown if ever smoked Alcohol use: Reports: unknown Drug use: Reports: unknown, other (Family stted he has used illict drugs in past ,) Physical Exam - General Limitations: altered mental status General appearance: in no apparent distress, lethargic Course Vital Signs Temperature 93.6 F L 08/30/17 07:46 Pulse Rate 103 08/30/17 07:46 Respiratory Rate 16 08/30/17 07:46 Blood Pressure 67/42 08/30/17 07:46 O2 Sat by Pulse Oximetry 99 08/30/17 07:46 Temperature 93.6 F L 08/30/17 07:46 Pulse Rate 113 08/30/17 10:41 Respiratory Rate 12 08/30/17 10:41 Blood Pressure 64/35 08/30/17 10:41 O2 Sat by Pulse Oximetry 100 08/30/17 10:41 Oxygen Delivery Oxygen Delivery Ventilator Procedures - Central Line Placement Right IJ Central Line Inserted*: Yes Central Line Insertion: emergent Procedural Pause: verify patient name and date of , manjeet and assess the site, assemble equipment and verify supplies, perform hand hygiene Patient Placed on Monitor/Pulse Ox: Yes During the Procedure: clinician is wearing sterile gloves, cap, mask,& gown during insertion, sterile field and sterile technique are maintained, patient's face is covered with drape or mask and wearing a cap, everyone in room is wearing a mask Central Line Prep: Chlorhexidine scrub Prep the Procedure Site: apply chloraprep to the skin using a back and forth scrubbing motion, apply chloraprep for 30 seconds (upper body), 1-2 min ( femoral sites), allow prep to dry, drape the patient with a full body drape Local Anesthetic: lidocaine 1%, with epi Amount of anesthesia used (mL): 5 Ultrasound Used for Placement: Yes Central Line Lumen Inserted: triple Post Procedure: sutured in place, good blood return, all ports aspirated, flushed, capped, sterile dressing applied, guide wire removed and visualized, dressing is dated Post Procedure X-Ray: tip of catheter in good position, no pneumothorax seen Patient Tolerated Procedure: well Complications: none - Intubation Time out performed: No sedative: Etomidate Mg Given: 20 paralytic: Rocuronium Mg Given: 100 Laryngoscope: [place] Assist Device Used: other (video assisted) ET Tube Size: 7 ET Tube Uncuffed: No Tube Secured Depth (cm): 23 Tube Secured Location: teeth Tube Placement Confirmation: visualized tube passing through cords, equal breath sounds bilaterally, no breath sounds over epigastrium Patient Tolerated Procedure: well Intubation Complications: none Medical Decision Making - Lab Data Result diagrams: 08/30/17 13:00 08/30/17 13:00 Lab Results 08/30/17 08/30/17 08/30/17 Range/Units 07:52 07:54 07:54 WBC 14.0 H (4.3-11.1) K/mcL RBC 1.46 L (4.19-5.50) M/mcL Hgb 4.6 L* (12.9-16.9) g/dL Hct 15.4 L (37.5-50.1) % MCV 105.5 H (83.0-100.0) fL MCH 31.5 (28.0-33.3) pg MCHC 29.9 L (31.6-35.5) g/dL RDW 17.5 H (11.5-14.5) % Plt Count 30 L* (140-400) K/mcL MPV 13.3 H (9.4-12.4) fL Seg Neutrophils % 68.0 % Band Neutrophils % 6.0 H (0-4) % Lymphocytes % 16.0 % Monocytes % 8.0 % Eosinophils % 2.0 % Neutrophils # 10.4 H (1.6-8.9) K/mcL Lymphocytes # 2.2 (0.6-4.6) K/mcL Monocytes # 1.1 (0.0-1.3) K/mcL Eosinophils # 0.3 (0.0-0.6) K/mcL Nucleated RBCs/100 WBC 1.6 H (0) /100 WBC Platelet Estimate Marked Decrease L (Normal) Polychromasia 1+ A (Not Present) Hypochromasia Present A (Not Present) Poikilocytosis 1+ A (Not Present) Anisocytosis 1+ A (Not Present) PT TNP INR TNP APTT TNP ABG pH (7.32-7.45) pH Units ABG pCO2 (35-45) mmHg ABG pO2 (85-104) mmHg ABG HCO3 (21-27) mEq/L ABG Total CO2 (20-26) mEq/L ABG O2 Saturation (95-98) % ABG Base Excess (-2 to 3) mEq/L Carboxyhemoglobin (0-5) % Respiration Rate O2 Delivery Device Blood Gas Modality Inspired O2 (1-15=lpm [id number]=%) Tidal Volume cc PEEP cm H2O Sodium (136-145) mEq/L Potassium (3.5-5.1) mEq/L Chloride (98-107) mEq/L Carbon Dioxide (23-29) mEq/L BUN (6-20) mg/dL Creatinine (0.70-1.30) mg/dL Est GFR ( Amer) (> 60) Est GFR (Non-Af Amer) (> 60) BUN/Creatinine Ratio (6-26) Glucose (70-105) mg/dL POC Glucose 141 H (70-99) mg/dL Calculated Osmolality (280-300) Lactic Acid (0.5-2.2) mmol/L Calcium (8.6-10.3) mg/dL Total Bilirubin (0.3-1.0) mg/dL Direct Bilirubin (0.0-0.2) mg/dL Indirect Bilirubin (0.0-1.2) mg/dL AST (13-39) Units/L ALT (7-52) Units/L Alkaline Phosphatase (34-104) Units/L Ammonia (16-53) mcmol/L Creatine Kinase (30-223) Units/L Troponin I (< 0.04) ng/mL Serum Total Protein (6.4-8.9) g/dL Albumin (3.5-5.7) g/dL Globulin Albumin/Globulin Ratio Lipase (11-82) Units/L TSH (0.340-5.600) mcIU/mL Salicylates (15.0-30.0) mg/dL Acetaminophen (10-20) mcg/mL Ethyl Alcohol (Less than 10) mg/dL Blood Type Antibody Screen Crossmatch 08/30/17 08/30/17 08/30/17 Range/Units 07:54 09:08 09:16 WBC (4.3-11.1) K/mcL RBC (4.19-5.50) M/mcL Hgb (12.9-16.9) g/dL Hct (37.5-50.1) % MCV (83.0-100.0) fL MCH (28.0-33.3) pg MCHC (31.6-35.5) g/dL RDW (11.5-14.5) % Plt Count (140-400) K/mcL MPV (9.4-12.4) fL Seg Neutrophils % % Band Neutrophils % (0-4) % Lymphocytes % % Monocytes % % Eosinophils % % Neutrophils # (1.6-8.9) K/mcL Lymphocytes # (0.6-4.6) K/mcL Monocytes # (0.0-1.3) K/mcL Eosinophils # (0.0-0.6) K/mcL Nucleated RBCs/100 WBC (0) /100 WBC Platelet Estimate (Normal) Polychromasia (Not Present) Hypochromasia (Not Present) Poikilocytosis (Not Present) Anisocytosis (Not Present) PT INR APTT ABG pH 6.82 L* (7.32-7.45) pH Units ABG pCO2 38 (35-45) mmHg ABG pO2 106 H (85-104) mmHg ABG HCO3 6 L (21-27) mEq/L ABG Total CO2 7 L (20-26) mEq/L ABG O2 Saturation 90 L (95-98) % ABG Base Excess -25 L (-2 to 3) mEq/L Carboxyhemoglobin (0-5) % Respiration Rate 12 O2 Delivery Device Adult Vent Blood Gas Modality ASSIST CONTROL Inspired O2 50.0 (1-15=lpm [id number]=%) Tidal Volume 500 cc PEEP 5 cm H2O Sodium 143 (136-145) mEq/L Potassium 4.9 (3.5-5.1) mEq/L Chloride 116 H (98-107) mEq/L Carbon Dioxide 8 L* (23-29) mEq/L BUN 13 (6-20) mg/dL Creatinine 1.49 H (0.70-1.30) mg/dL Est GFR ( Amer) > 60 (> 60) Est GFR (Non-Af Amer) 54 L (> 60) BUN/Creatinine Ratio 9 (6-26) Glucose 126 H (70-105) mg/dL POC Glucose (70-99) mg/dL Calculated Osmolality 298 (280-300) Lactic Acid (0.5-2.2) mmol/L Calcium 7.6 L (8.6-10.3) mg/dL Total Bilirubin 2.5 H (0.3-1.0) mg/dL Direct Bilirubin 1.5 H (0.0-0.2) mg/dL Indirect Bilirubin 1.0 (0.0-1.2) mg/dL AST 108 H (13-39) Units/L ALT 28 (7-52) Units/L Alkaline Phosphatase 74 (34-104) Units/L Ammonia 259 H (16-53) mcmol/L Creatine Kinase 320 H (30-223) Units/L Troponin I 0.39 H* (< 0.04) ng/mL Serum Total Protein < 3.0 L (6.4-8.9) g/dL Albumin < 1.5 L (3.5-5.7) g/dL Globulin TNP Albumin/Globulin Ratio TNP Lipase 91 H (11-82) Units/L TSH 1.890 (0.340-5.600) mcIU/mL Salicylates < 2.5 L (15.0-30.0) mg/dL Acetaminophen < 10 L (10-20) mcg/mL Ethyl Alcohol < 10 (Less than 10) mg/dL Blood Type Antibody Screen Crossmatch 08/30/17 08/30/17 08/30/17 Range/Units 09:25 09:25 09:25 WBC (4.3-11.1) K/mcL RBC (4.19-5.50) M/mcL Hgb (12.9-16.9) g/dL Hct (37.5-50.1) % MCV (83.0-100.0) fL MCH (28.0-33.3) pg MCHC (31.6-35.5) g/dL RDW (11.5-14.5) % Plt Count (140-400) K/mcL MPV (9.4-12.4) fL Seg Neutrophils % % Band Neutrophils % (0-4) % Lymphocytes % % Monocytes % % Eosinophils % % Neutrophils # (1.6-8.9) K/mcL Lymphocytes # (0.6-4.6) K/mcL Monocytes # (0.0-1.3) K/mcL Eosinophils # (0.0-0.6) K/mcL Nucleated RBCs/100 WBC (0) /100 WBC Platelet Estimate (Normal) Polychromasia (Not Present) Hypochromasia (Not Present) Poikilocytosis (Not Present) Anisocytosis (Not Present) PT INR APTT ABG pH (7.32-7.45) pH Units ABG pCO2 (35-45) mmHg ABG pO2 (85-104) mmHg ABG HCO3 (21-27) mEq/L ABG Total CO2 (20-26) mEq/L ABG O2 Saturation (95-98) % ABG Base Excess (-2 to 3) mEq/L Carboxyhemoglobin 2.2 (0-5) % Respiration Rate O2 Delivery Device Blood Gas Modality Inspired O2 (1-15=lpm [id number]=%) Tidal Volume cc PEEP cm H2O Sodium (136-145) mEq/L Potassium (3.5-5.1) mEq/L Chloride (98-107) mEq/L Carbon Dioxide (23-29) mEq/L BUN (6-20) mg/dL Creatinine (0.70-1.30) mg/dL Est GFR ( Amer) (> 60) Est GFR (Non-Af Amer) (> 60) BUN/Creatinine Ratio (6-26) Glucose (70-105) mg/dL POC Glucose (70-99) mg/dL Calculated Osmolality (280-300) Lactic Acid > 10.0 H* (0.5-2.2) mmol/L Calcium (8.6-10.3) mg/dL Total Bilirubin (0.3-1.0) mg/dL Direct Bilirubin (0.0-0.2) mg/dL Indirect Bilirubin (0.0-1.2) mg/dL AST (13-39) Units/L ALT (7-52) Units/L Alkaline Phosphatase (34-104) Units/L Ammonia (16-53) mcmol/L Creatine Kinase (30-223) Units/L Troponin I (< 0.04) ng/mL Serum Total Protein (6.4-8.9) g/dL Albumin (3.5-5.7) g/dL Globulin Albumin/Globulin Ratio Lipase (11-82) Units/L TSH (0.340-5.600) mcIU/mL Salicylates (15.0-30.0) mg/dL Acetaminophen (10-20) mcg/mL Ethyl Alcohol (Less than 10) mg/dL Blood Type O NEGATIVE Antibody Screen NEGATIVE Crossmatch See Detail Critical Care Time Critical Care Time: Yes Total Critical Care Time: 120 Attestation: continous interepretation of labs values with constant updating with family and consultationg with tertiary hospital ([facility]) and surgery and GI.
[2017-08-30] MEDS ORDERED: EPINEPHrine 1 MG in D5% in Water 250 ML IVC SCH (15:00)
[2017-08-30] MEDS ORDERED: [UNRECOGNIZED DRUG - OTHER] IVP ONE (15:15)
[2017-08-30] MEDS ORDERED: Naloxone 0.4 MG/ML INJ IVP PRN (15:46)
[2017-08-30 16:11] VITALS: BP 46/26
[2017-08-30 16:11] LABS: Hematocrit 6.4 % (37.5-50.1)
[2017-08-30 16:12] LABS: Hemoglobin 1.8 g/dL (12.9-16.9)
[2017-08-30] MEDS ORDERED: Sodium Tetradecyl Sulfate 2 ML VIAL IVP ONE (16:15)
[2017-08-30] MEDS ORDERED: *HR* Etomidate 20 MG/10 ML AMPUL IVP ONE (17:19)
[2017-08-30] MEDS ORDERED: *HR* LORazepam 2 MG/ML VIAL IVP ONE (17:19)
[2017-08-30] MEDS ORDERED: *HR* Rocuronium Bromide 100 MG/10 ML VIAL IVC ONE (17:19)
--- NOTE | 2017-08-30 17:31 | Death Note ---
<Valentino Lundberg - Last Filed: 08/30/17 18:08> Discharge Sum: Summary - Date and Time Date of admission: 08/30/17 10:30 - Additional Data Attending physician: April Young MD Discharge Sum: Prov - Provider Primary care physician: PCP NONE - Attending Attestation I examined this patient and my medical decision-making was reviewed with the Resident Physician. I agree with the documented findings, disposition and treatment plan as described except to the extent set forth below. I had multiple discussion with the patient's family and when his condition was deteriorating without responding to the treatment CODE STATUS was changed to comfort care and then patient after stopping vasopressors. <DavidTang - Last Filed: 08/30/17 18:24> Discharge Sum: Summary - Date and Time Date of admission: 08/30/17 10:30 Date of : 08/30/17 Time of : 17:20 - Summary Details: Mr. Mohan is a 32-year-old male who presented to the ED after being found unresponsive and hypotensive at home by her family. Patient had hematemesis. He is currently intubated. Upon arrival to the emergency department, patient had an elevated pulse at 103 bpm and was hypotensive at 67/42. All other vital signs were within normal limits. His family stated that he he has a history of daily alcohol consumption and binge drinking. They report that he has not been drinking much lately; has been sick the past month. Had been complaining of GERD and abdominal pain at home. He has had an unintentional weight loss of 20 pounds within the last month. They deny having any prior episodes of GI bleeds. He does however have a history of nosebleeds. No known history of cirrhosis or varices. No known history of cardiac disease. Not currently on anticoagulation. No previous scopes. No known use of NSAIDs. Laboratory analysis demonstrated an elevated white count of 14.0, a hemoglobin of 4.6, an elevated creatinine at 1.49, and a lactic acid greater than 10. Arterial blood gas demonstrated a pH of 6.82, PCO2 38, PO2 of 106, bicarbonate 6 , total CO2 7, O2 saturation 90. Patients hemoglobin continued to drop significantly; reaching a low of 1.8. Patient was taken for emergent EGD. Per the EGD report, patient had grade 3 esophageal varices, incompletely eradicated, banded. There was a spurting gastroesophageal junction tear. Clips were placed. There were injected. There was red blood present in the gastric fundus and in the gastric body. GI recommended a PPI infusion, octreotide infusion, and a platelet transfusion along with fresh frozen plasma and blood products. Patient was transferred to the ICU for further management. Patients blood pressure continued to drop. Was placed on epinephrine drip. A few hours after the patient arrived to the ICU, patients family made the decision to withdraw care. Was determined the patients prognosis was very poor. Time of was recorded at 17:20. Cause of was acute blood loss secondary to esophageal varices. - Additional Data Confirmation of as documented by pronouncing clinician: no pulse Family: at bedside Attending physician: April Young MD Was code activated?: No Hospice patient?: No Discharge Sum: Diag - PCOD Probable Cause of : Gastrointestinal hemorrhage Discharge Sum: Prov - Provider Primary care physician: PCP NONE Admitting clinician: Tang Hernandez Attending physician on admission: Valentino Lundberg Pronouncing clinician: Valentino Lundberg
[2017-08-30] MEDS ORDERED: Thiamine (B-1) 100 MG, Folic Acid 1 MG, MVI, adult with vitamin K 10 ML in 0.9 % Sodi... IVPB SCH (18:00)
--- NOTE | 2017-09-02 17:35 | Electrocardiograph Report ---
[address] [place], [place] [address] Test Date: 2017-08-30 Pat Name: Homero Mohan Department: 102 Room: [facility] Gender: M [employer]: Marifer : 1985 Requested By: Elham Farley Order Number: [id number] Reading MD: Amarilys Guzman Measurements Intervals [place] Rate: 106 P: 63 VT: 126 QRS: 58 QRSD: 82 T: 28 QT: 347 QTc: 409 Interpretive Statements SINUS TACHYCARDIA NONSPECIFIC ST CHANGES Electronically Signed On 09-02-2017 17:33:33 EDT by Amarilys Guzman
== END 2017-08-30 17:20 | disposition expired | DRG 369 ==
LOC: EMEROO 07:44 → ICNU 10:30
PROVIDERS: ADMIT Internal Medicine Pulmonary Disease; ATTEND Internal Medicine